=== PATIENT | female | born 1995 | race Caucasian/White ===

== ENCOUNTER 2018-03-11 03:14 | Outpatient (CLI) | payer MEDICAID ==
[2018-03-11 05:13] LABS: ADD UMIC YES; UR ASCORBIC ACID NEGATIVE (NEGATIVE); UR BACTERIA FEW /HPF (NONE SEEN); UR BILIRUBIN (Dip) NEGATIVE (NEGATIVE); UR BLOOD (Dip) NEGATIVE (NEGATIVE); UR CLARITY SLIGHTLY CLOUDY (CLEAR); UR COLOR STRAW (YELLOW); UR GLUCOSE (Dip) NEGATIVE (NEGATIVE); UR KETONES (Dip) NEGATIVE (NEGATIVE); UR LEUKOCYTE ESTERASE (Dip) 3+ Leu/ul (NEGATIVE); UR NITRITE (Dip) NEGATIVE (NEGATIVE); UR RBC 1 /HPF (0-5); UR SPECIFIC GRAVITY (Dip) 1.004 (1.003-1.030); UR SQUAMOUS EPITHELIAL CELL FEW /HPF (FEW); UR TOTAL PROTEIN (Dip) NEGATIVE (NEGATIVE); UR UROBILINOGEN (Dip) NEGATIVE (NEGATIVE); UR WBC 10 /HPF (0-5)
[2018-03-11] MEDS: TERBUTALINE 1 MG/ML INJ SC (06:24)
[2018-03-11] MEDS: LACTATED RINGER'S 1,000 ML IV ×2 (07:48→08:30)
== END 2018-03-11 10:31 | disposition home or self-care (01) ==
LOC: OBT 03:14 → L-D 03:15 → OBT 10:31
DX: O60.03 Preterm labor without delivery, third trimester (principal); Z3A.31 31 weeks gestation of pregnancy
CPT/HCPCS: 76815; 76817; 76818; 81001

== ENCOUNTER 2018-04-20 16:40 | Inpatient (IN) | payer MEDICAID ==
[2018-04-20] MEDS ORDERED: CARBOPROST 250 MCG INJ IM (17:30)
[2018-04-20] MEDS ORDERED: MISOPROSTOL 200 MCG TAB PR (17:30)
[2018-04-20] MEDS ORDERED: OXYTOCIN 30 UNITS/LR 500 ML IV (17:30)
[2018-04-20] MEDS ORDERED: LIDOCAINE 1% (MPF) 30 ML INJ INJ (17:30)
[2018-04-20] MEDS: LACTATED RINGER'S 1,000 ML IV* (17:41)
[2018-04-20] MEDS: MAGNESIUM SULFATE 4 GM/100 ML 100 ML IV (17:46)
[2018-04-20 17:53] LABS: ADD MAN DIFF? NO
[2018-04-20 17:55] LABS: BASOPHILS % 0.3 % (0.0-2.0); EOSINOPHILS # 0.1 10^3/ul (0.0-0.5); EOSINOPHILS % 0.5 % (0.0-7.0); HEMATOCRIT 36.7 % (37.0-47.0); HEMOGLOBIN 12.6 g/dl (12.0-16.0); LYMPHOCYTES # 1.8 10^3/ul (0.8-2.9); LYMPHOCYTES % 13.1 % (15.0-51.0); MEAN CORPUSCULAR HEMOGLOBIN 30.9 pg (29.0-33.0); MEAN CORPUSCULAR HGB CONC 34.3 g/dl (32.0-37.0); MEAN PLATELET VOLUME 10.4 fl (7.4-10.4); MONOCYTES % 7.5 % (0.0-11.0); NEUTROPHIL # 10.5 10^3/ul (1.6-7.5); NEUTROPHILS % 78.1 % (39.0-77.0); PLATELET COUNT 278 10^3/UL (140-415); RED BLOOD COUNT 4.08 10^6/ul (4.20-5.40); RED CELL DISTRIBUTION WIDTH 12.6 % (11.5-14.5)
[2018-04-20 17:55] LABS: WHITE BLOOD COUNT 13.4 10^3/ul (4.8-10.8)
[2018-04-20] MEDS: MAGNESIUM SULFATE 20 GM/500 ML 500 ML IV (18:12)
[2018-04-20 18:14] LABS: INR 0.85; PROTIME 11.7 Sec (11.9-14.9); PT RATIO 0.9
[2018-04-20 18:15] LABS: PARTIAL THROMBOPLASTIN TIME 24.7 Sec (25.0-35.0)
[2018-04-20 18:20] LABS: ALANINE AMINOTRANSFERASE 21 IU/L (13-69); ALBUMIN 3.7 g/dl (3.3-4.9); ALBUMIN/GLOBULIN RATIO 1.19; ALKALINE PHOSPHATASE 202 IU/L (42-121); ANION GAP 13 (8-16); ASPARTATE AMINO TRANSFERASE 28 IU/L (15-46); BILIRUBIN,INDIRECT 0.4 mg/dl (0-1.1); BILIRUBIN,TOTAL 0.4 mg/dl (0.2-1.3); BLOOD UREA NITROGEN 6 mg/dl (7-20); CALCIUM 9.1 mg/dl (8.4-10.2); CARBON DIOXIDE 22 mmol/L (21-31); CHLORIDE 108 mmol/L (97-110); CREATININE 0.48 mg/dl (0.44-1.00); GLUCOSE 79 mg/dl (70-220); POTASSIUM 4.1 mmol/L (3.5-5.1); SODIUM 139 mmol/L (135-144); TOTAL PROTEIN 6.8 g/dl (6.1-8.1)
[2018-04-20] MEDS ORDERED: MISOPROSTOL 100 MCG TAB VAG (20:30)
[2018-04-20] MEDS: MISOPROSTOL 25 MCG CAPSULE VAG (20:57)
[2018-04-20 23:52] LABS: HEPATITIS B SURFACE ANTIGEN NEGATIVE (NEGATIVE)
[2018-04-21] MEDS: MISOPROSTOL 25 MCG CAPSULE PO ×5 (01:06→18:44)
[2018-04-21 01:26] LABS: MAGNESIUM 5.7 mg/dl (1.7-2.5)
[2018-04-21] MEDS: MAGNESIUM SULFATE 20 GM/500 ML 500 ML IV ×2 (04:13→14:25)
[2018-04-21] MEDS: LACTATED RINGER'S 1,000 ML IV* ×2 (06:20→18:47)
[2018-04-21 07:26] LABS: MAGNESIUM 5.8 mg/dl (1.7-2.5)
[2018-04-21 08:38] LABS: URIC ACID 4.7 mg/dl (3.1-7.9)
[2018-04-21 12:01] LABS: MAGNESIUM 6.4 mg/dl (1.7-2.5)
[2018-04-21] MEDS: ACETAMINOPHEN 325 MG TAB PO (14:21)
[2018-04-21 19:05] LABS: MAGNESIUM 6.2 mg/dl (1.7-2.5)
[2018-04-21 22:17] LABS: RAPID PLASMA REAGIN NONREACTIVE (NR)
[2018-04-21 23:04] LABS: ADD MAN DIFF? NO
[2018-04-21 23:07] LABS: WHITE BLOOD COUNT 19.4 10^3/ul (4.8-10.8)
[2018-04-21 23:07] LABS: ABNORMAL IP MESSAGE 1; BASOPHILS % 0.2 % (0.0-2.0); EOSINOPHILS % 0.2 % (0.0-7.0); HEMATOCRIT 35.2 % (37.0-47.0); HEMOGLOBIN 12.1 g/dl (12.0-16.0); LYMPHOCYTES # 1.5 10^3/ul (0.8-2.9); LYMPHOCYTES % 7.8 % (15.0-51.0); MEAN CORPUSCULAR HEMOGLOBIN 31.1 pg (29.0-33.0); MEAN CORPUSCULAR HGB CONC 34.4 g/dl (32.0-37.0); MEAN CORPUSCULAR VOLUME 90.5 fl (82.0-101.0); MEAN PLATELET VOLUME 10.3 fl (7.4-10.4); MONOCYTE # 1.5 10^3/ul (0.3-0.9); MONOCYTES % 7.9 % (0.0-11.0); NEUTROPHIL # 16.2 10^3/ul (1.6-7.5); NEUTROPHILS % 83.4 % (39.0-77.0); PLATELET COUNT 277 10^3/UL (140-415); RED BLOOD COUNT 3.89 10^6/ul (4.20-5.40); RED CELL DISTRIBUTION WIDTH 12.7 % (11.5-14.5)
[2018-04-21 23:14] LABS: ADD UMIC NO; UR ASCORBIC ACID NEGATIVE (NEGATIVE); UR BILIRUBIN (Dip) NEGATIVE (NEGATIVE); UR BLOOD (Dip) NEGATIVE (NEGATIVE); UR CLARITY CLEAR (CLEAR); UR COLOR STRAW (YELLOW); UR GLUCOSE (Dip) NEGATIVE (NEGATIVE); UR KETONES (Dip) NEGATIVE (NEGATIVE); UR LEUKOCYTE ESTERASE (Dip) NEGATIVE Leu/ul (NEGATIVE); UR NITRITE (Dip) NEGATIVE (NEGATIVE); UR SPECIFIC GRAVITY (Dip) 1.003 (1.003-1.030); UR TOTAL PROTEIN (Dip) NEGATIVE (NEGATIVE); UR UROBILINOGEN (Dip) NEGATIVE (NEGATIVE)
[2018-04-21 23:17] LABS: POSITIVE DIFF @See below
[2018-04-21 23:26] LABS: INR 0.93; PARTIAL THROMBOPLASTIN TIME 27.4 Sec (25.0-35.0); PROTIME 12.5 Sec (11.9-14.9)
[2018-04-21 23:48] LABS: ALANINE AMINOTRANSFERASE 28 IU/L (13-69); ALBUMIN 3.4 g/dl (3.3-4.9); ALBUMIN/GLOBULIN RATIO 1.03; ALKALINE PHOSPHATASE 233 IU/L (42-121); ANION GAP 12 (8-16); ASPARTATE AMINO TRANSFERASE 27 IU/L (15-46); BILIRUBIN,INDIRECT 0.4 mg/dl (0-1.1); BILIRUBIN,TOTAL 0.4 mg/dl (0.2-1.3); BLOOD UREA NITROGEN 4 mg/dl (7-20); CALCIUM 7.5 mg/dl (8.4-10.2); CARBON DIOXIDE 27 mmol/L (21-31); CHLORIDE 103 mmol/L (97-110); CREATININE 0.56 mg/dl (0.44-1.00); GLUCOSE 99 mg/dl (70-220); POTASSIUM 3.8 mmol/L (3.5-5.1); SODIUM 138 mmol/L (135-144); TOTAL PROTEIN 6.7 g/dl (6.1-8.1); URIC ACID 5.1 mg/dl (3.1-7.9)
[2018-04-22] MEDS: OXYTOCIN 30 UNITS/LR 500 ML IV ×3 (00:21→21:42)
[2018-04-22] MEDS: LACTATED RINGER'S 1,000 ML IV* ×3 (04:52→16:08)
[2018-04-22] MEDS: MAGNESIUM SULFATE 20 GM/500 ML 500 ML IV ×2 (04:56→23:19)
[2018-04-22 07:02] LABS: MAGNESIUM 4.6 mg/dl (1.7-2.5)
[2018-04-22] MEDS: BUTORPHANOL 2 MG INJ IV (08:51)
[2018-04-22] MEDS ORDERED: FENTAnyl 2MCG/ML-ROPIV 0.2% 100 ML (10:40)
[2018-04-22] MEDS ORDERED: DIPHENHYDRAMINE 50 MG INJ IV (11:00)
[2018-04-22] MEDS ORDERED: NALOXONE (0.4 MG/ML) INJ IV (11:00)
[2018-04-22] MEDS ORDERED: FENTAnyl 2MCG/ML-ROPIV 0.2% 100 ML BAG EPI (11:00)
[2018-04-22] MEDS ORDERED: ONDANSETRON 4 MG INJ IV (11:00)
[2018-04-22 12:55] LABS: MAGNESIUM 4.7 mg/dl (1.7-2.5)
[2018-04-22 18:04] LABS: MAGNESIUM 4.7 mg/dl (1.7-2.5)
[2018-04-22] MEDS: AMPICILLIN 2 GM/NS (PMX) 100 ML IVPB (19:48)
[2018-04-22] MEDS: MINERAL OIL LIGHT 10 ML VIAL TOP ×2 (19:52→21:51)
[2018-04-22] MEDS ORDERED: GENTAMICIN 120 MG/NS (PMX) 100 ML IVPB (21:10)
[2018-04-22] MEDS ORDERED: GENTAMICIN 80 MG/NS (PMX) 50 ML (21:11)
[2018-04-22] MEDS: GENTAMICIN 80 MG/NS (PMX) 50 ML IVPB (21:15)
[2018-04-22] MEDS: METHYLERGONOVINE 0.2 MG INJ IM (21:31)
[2018-04-22] MEDS: HYDROCODONE/APAP (5/325) TAB PO (23:19)
[2018-04-23] MEDS ORDERED: DEXTROSE 5%-LR 1,000 ML IV (00:27)
[2018-04-23] MEDS ORDERED: ACETAMINOPHEN 325 MG TAB PO (00:30)
[2018-04-23] MEDS ORDERED: CARBOPROST 250 MCG INJ IM (00:30)
[2018-04-23] MEDS ORDERED: DIBUCAINE 1% 30 GM OINT PR (00:30)
[2018-04-23] MEDS ORDERED: MISOPROSTOL 200 MCG TAB PR (00:30)
[2018-04-23] MEDS ORDERED: HYDROCODONE/APAP (5/325) TAB PO (00:30)
[2018-04-23] MEDS ORDERED: DIPHENHYDRAMINE 50 MG INJ IV (00:30)
[2018-04-23] MEDS ORDERED: ONDANSETRON 4 MG INJ IV (00:30)
[2018-04-23] MEDS ORDERED: OXYTOCIN 30 UNITS/LR 500 ML IV (00:30)
[2018-04-23 01:07] LABS: MAGNESIUM 4.3 mg/dl (1.7-2.5)
[2018-04-23] MEDS: LACTATED RINGER'S 1,000 ML IV* ×2 (02:32→08:27)
[2018-04-23] MEDS: AMPICILLIN 2 GM/NS (PMX) 100 ML IVPB ×2 (03:16→10:47)
[2018-04-23] MEDS: BENZOCAINE 20% 56 ML SPRAY TOP (03:34)
[2018-04-23] MEDS: WITCH HAZEL/GLYCERIN PAD PR (03:35)
[2018-04-23] MEDS: LANOLIN 7 GM TUBE TOP (03:35)
[2018-04-23] MEDS: GENTAMICIN 80 MG/NS (PMX) 50 ML IVPB ×2 (03:50→09:30)
[2018-04-23] MEDS: IBUPROFEN 600 MG TAB PO ×3 (05:50→17:45)
[2018-04-23] MEDS: MAGNESIUM HYDROXIDE 30ML CUP PO ×2 (09:29→21:07)
[2018-04-24] MEDS: IBUPROFEN 600 MG TAB PO ×3 (00:22→11:24)
[2018-04-24 06:42] LABS: ADD MAN DIFF? NO
[2018-04-24 06:47] LABS: WHITE BLOOD COUNT 16.1 10^3/ul (4.8-10.8)
[2018-04-24 06:47] LABS: BASOPHIL # 0.1 10^3/ul (0.0-0.1); BASOPHILS % 0.5 % (0.0-2.0); EOSINOPHILS # 0.2 10^3/ul (0.0-0.5); EOSINOPHILS % 1.2 % (0.0-7.0); HEMOGLOBIN 12.2 g/dl (12.0-16.0); LYMPHOCYTES # 2.7 10^3/ul (0.8-2.9); LYMPHOCYTES % 16.9 % (15.0-51.0); MEAN CORPUSCULAR HEMOGLOBIN 31.5 pg (29.0-33.0); MEAN CORPUSCULAR HGB CONC 33.9 g/dl (32.0-37.0); MEAN PLATELET VOLUME 9.9 fl (7.4-10.4); MONOCYTE # 1.5 10^3/ul (0.3-0.9); NEUTROPHIL # 11.6 10^3/ul (1.6-7.5); NEUTROPHILS % 71.7 % (39.0-77.0); PLATELET COUNT 283 10^3/UL (140-415); RED BLOOD COUNT 3.87 10^6/ul (4.20-5.40); RED CELL DISTRIBUTION WIDTH 12.8 % (11.5-14.5)
[2018-04-24] MEDS: MAGNESIUM HYDROXIDE 30ML CUP PO (09:00)
[2018-04-24] MEDS: SENNA/DOCUSATE NA (8.6MG/50MG) TAB PO (10:31)
[2018-04-25] MEDS ORDERED: MEASLES,MUMPS,RUBELLA VACCINE INJ SC* (09:00)
[2018-04-25] MEDS ORDERED: DIPHTH/TET/ACEL PERTUSS (ADULT) 0.5 ML VIAL IM* (09:00)
== END 2018-04-24 16:10 | disposition home or self-care (01) | DRG 775 ==
LOC: OBT 16:40 → L-D 16:41 → PP1 04-22 23:43 → L-D 16:43 → OBT 16:53 → L-D 16:53
PROC: 10E0XZZ Delivery of Products of Conception, External Approach (ICD-10-PCS; principal; 2018-04-23)
PROC: 0UQMXZZ Repair Vulva, External Approach (ICD-10-PCS; 2018-04-23)
PROC: 3E033VJ Introduction of Other Hormone into Peripheral Vein, Percutaneous Approach (ICD-10-PCS; 2018-04-23)
DX: O24.429 Gestational diabetes mellitus in childbirth, unspecified control (principal); O14.94 Unspecified pre-eclampsia, complicating childbirth; O71.82 Other specified trauma to perineum and vulva; O69.81X0 Labor and delivery complicated by cord around neck, without compression, not applicable or unspecified; Z3A.37 37 weeks gestation of pregnancy; Z37.0 Single live birth
CPT/HCPCS: 59025; 62319; 76816; 80053; 81003; 83735; 84560; 85025; 85384; 85610; 85730; 86592; 86850; 86900; 86901; 87340